=== PATIENT | female | born 1965 | race African-American/Black ===

== ENCOUNTER 2017-08-08 20:20 | Emergency (ER) | payer OTHER ==
[~2017-08-08] VITALS: Ht 167.6 cm; Wt 68.0 kg
[2017-08-08] MEDS ORDERED: MAGNESIUM 2 G PREMIX 50 ML IV STA (20:35)
[2017-08-08] MEDS ORDERED: METHYLPREDNISOLONE SOD SUCC 125 MG/2 ML VIAL IV STA (20:35)
[2017-08-08] MEDS ORDERED: ALBUTEROL (0.083%) 2.5MG/3ML NEB HHN STA (20:35)
[2017-08-08] MEDS ORDERED: IPRATROPIUM BROMIDE (0.02%) 0.5MG/2.5ML NEB HHN STA (20:35)
[2017-08-08 21:18] LABS: HEMATOCRIT. 36.7 % (36.0-48.0); HEMOGLOBIN. 12.6 g/dL (12.0-16.0); MEAN CORPUSCULAR HEMOGLOBIN 31.8 pg (28.0-32.0); MEAN CORPUSCULAR VOLUME 92.5 fL (81.0-99.0); MEAN PLATELET VOLUME 9.3 fl (7.4-10.4); PLATELET 259 x1000/uL (130-400); RED BLOOD CELL COUNT 3.97 mill/uL (4.2-5.4); RED CELL DISTRIBUTION WIDTH 14.2 % (11.6-14.6)
[2017-08-08 21:26] LABS: INR 1.1; PARTIAL THROMBOPLASTIN TIME 25.4 sec (23.4-31.0)
[2017-08-08 21:29] LABS: CARBON DIOXIDE 23 mEq/L (21-32); CHLORIDE 105 mEq/L (98-107)
[2017-08-08 21:32] LABS: TROPONIN I < 0.02 ng/mL (0.00-0.04)
[2017-08-08 21:43] LABS: PLATELET ESTIMATE NORMAL
[2017-08-08] MEDS ORDERED: POTASSIUM CHLORIDE 20MEQ TABLET SR PO ONE (21:45)
[2017-08-08] MEDS ORDERED: KCL 10MEQ/50ML PREMIX 50 ML IV ONE (23:45)
[2017-08-09] MEDS ORDERED: PREDNISONE 20MG TABLET PO ONE (00:45)
[2017-08-09 01:38] VITALS: BP 140/59
== END 2017-08-09 01:39 | disposition home or self-care (01) ==
LOC: ER 20:38
DX: J45.901 Unspecified asthma with (acute) exacerbation (principal); R03.0 Elevated blood-pressure reading, without diagnosis of hypertension
CPT/HCPCS: 36415; 71010; 80048; 83735; 83880; 84132; 84484; 85025; 85610; 85730; 93005; 94640; 96365; 96366; 96367; 96375; 99285; J2930; J3475; J3480; J7040; J7512; J7611

== ENCOUNTER 2021-09-14 07:42 | Emergency (ER) | payer MEDICAID, OTHER ==
[~2021-09-14] VITALS: Ht 165.1 cm; Wt 59.0 kg
[~2021-09-14 07:42] MED LIST: ALBU18HF2 IH; BENZ-16 MT; FLUT1DIS3 INH; P20 MT
[2021-09-14] MEDS ORDERED: SODIUM CHLORIDE 0.9% 1,000 ML IV ONE (08:00)
[2021-09-14] MEDS ORDERED: METOCLOPRAMIDE HCL 10MG/2ML VIAL IV ONE (08:00)
[2021-09-14] MEDS ORDERED: KETOROLAC 30MG/ML VIAL IV STA (08:00)
[2021-09-14 08:18] VITALS: BP 132/93
[2021-09-14] MEDS ORDERED: IBUP-2028 PO (09:55)
[2021-09-14] MEDS ORDERED: METO-293 PO (09:55)
== END 2021-09-14 10:15 | disposition home or self-care (01) ==
LOC: ER 07:42
DX: R51.9 Headache, unspecified (principal); M54.2 Cervicalgia; R03.0 Elevated blood-pressure reading, without diagnosis of hypertension; J45.909 Unspecified asthma, uncomplicated; J44.9 Chronic obstructive pulmonary disease, unspecified; E11.9 Type 2 diabetes mellitus without complications; F14.90 Cocaine use, unspecified, uncomplicated
CPT/HCPCS: 96374; 96375; 99284; J1885; J2765; J7030

== ENCOUNTER 2022-03-07 04:56 | Emergency (ER) | payer MEDICAID, OTHER ==
[~2022-03-07] VITALS: Ht 160 cm; Wt 46.0 kg
[~2022-03-07 04:56] MED LIST changes: +IBUP-2028 PO; +METO-293 PO
[2022-03-07 04:57] VITALS: BP 106/62
[2022-03-07] MEDS ORDERED: ACETAMINOPHEN 500MG TABLET PO ONE (05:15)
[2022-03-07] MEDS ORDERED: IBUP-2029 MT (06:51)
== END 2022-03-07 07:01 | disposition home or self-care (01) ==
LOC: ER 04:56
DX: S70.01XA Contusion of right hip, initial encounter (principal); S80.01XA Contusion of right knee, initial encounter; F14.10 Cocaine abuse, uncomplicated; J45.909 Unspecified asthma, uncomplicated; J44.1 Chronic obstructive pulmonary disease with (acute) exacerbation; Z86.59 Personal history of other mental and behavioral disorders; Y04.0XXA Assault by unarmed brawl or fight, initial encounter; Y93.89 Activity, other specified; Y92.89 Other specified places as the place of occurrence of the external cause; Y99.8 Other external cause status
CPT/HCPCS: 73502; 73562; 99284

== ENCOUNTER 2022-07-18 05:07 | Emergency (ER) | payer OTHER ==
[~2022-07-18] VITALS: Ht 162.6 cm; Wt 69.0 kg
[~2022-07-18 05:07] MED LIST changes: +IBUP-2029 MT
[2022-07-18] MEDS ORDERED: METHYLPREDNISOLONE SOD SUCC 125 MG/2 ML VIAL IV STA (05:24)
[2022-07-18] MEDS ORDERED: ALBUTEROL (0.083%) 2.5MG/3ML NEB HHN STA ×2 (05:24→07:29)
[2022-07-18] MEDS ORDERED: ACETAMINOPHEN 325MG TABLET PO STA (05:24)
[2022-07-18 06:30] LABS: PROTHROMBIN TIME 10.5 sec (9.6-11.0)
[2022-07-18 06:31] LABS: CHLORIDE 110 mEq/L (98-107)
[2022-07-18] MEDS ORDERED: IPRATROPIUM BROMIDE (0.02%) 0.5MG/2.5ML NEB HHN ONE (07:30)
[2022-07-18 08:14] LABS: BASOPHILS % 0.8 % (0.0-2.0); EOSINOPHILS % 4.1 % (0.0-5.0); HEMATOCRIT. 36.2 % (36.0-48.0); HEMOGLOBIN. 12.4 g/dL (12.0-16.0); LYMPHOCYTES % 50.3 % (20.0-50.0); MEAN CORPUSCULAR HEMOGLOBIN 32.3 pg (28.0-32.0); MEAN CORPUSCULAR VOLUME 94.7 fL (81.0-99.0); MEAN PLATELET VOLUME 9.9 fl (7.4-10.4); MONOCYTES % 8.4 % (2.0-8.0); NEUTROPHILS % 36.4 % (40.0-76.0); PLATELET 254 x1000/uL (130-400); RED BLOOD CELL COUNT 3.83 mill/uL (4.2-5.4); RED CELL DISTRIBUTION WIDTH 13.9 % (11.6-14.6)
[2022-07-18] MEDS ORDERED: ALBU6.7H15 INH (08:56)
[2022-07-18] MEDS ORDERED: ALBU2.5V13 NEB (08:56)
[2022-07-18] MEDS ORDERED: P20 MT (08:56)
[2022-07-18 09:34] LABS: CLARITY URINE CLEAR (CLEAR); COLOR URINE YELLOW (YELLOW); KETONES URINE NEGATIVE (NEGATIVE); LEUKOCYTE ESTERASE URINE NEGATIVE (NEGATIVE); NITRITE URINE NEGATIVE (NEGATIVE); OCCULT BLOOD URINE NEGATIVE (NEGATIVE); PROTEIN URINE NEGATIVE (NEGATIVE); SPECIFIC GRAVITY URINE 1.016 (1.005-1.030); UROBILINOGEN URINE 0.2 E.U./dL (0.2-1.0)
[2022-07-18 10:00] VITALS: BP 123/70
== END 2022-07-18 10:02 | disposition home or self-care (01) ==
LOC: ER 05:07
DX: J44.1 Chronic obstructive pulmonary disease with (acute) exacerbation (principal); F14.10 Cocaine abuse, uncomplicated; R06.02 Shortness of breath; F17.290 Nicotine dependence, other tobacco product, uncomplicated; I10 Essential (primary) hypertension; Z13.9 Encounter for screening, unspecified; Z86.59 Personal history of other mental and behavioral disorders; Z20.822 Contact with and (suspected) exposure to COVID-19
CPT/HCPCS: 36415; 71045; 80053; 81003; 83605; 83880; 84484; 85025; 85610; 87040; 87086; 87426; 93005; 94640; 96374; 99285; 99406; C9803; J2930; Z7610

== ENCOUNTER 2023-02-07 16:24 | Emergency (ER) | payer MEDICAID, OTHER ==
[~2023-02-07] VITALS: Ht 167.6 cm; Wt 45.0 kg
[~2023-02-07 16:24] MED LIST changes: +ALBU2.5V13 NEB; +ALBU6.7H15 INH
[2023-02-07 16:50] VITALS: BP 138/80
[2023-02-07 17:28] LABS: BASOPHILS % 0.8 % (0.0-2.0); EOSINOPHILS % 0.6 % (0.0-5.0); HEMOGLOBIN. 12.8 g/dL (12.0-16.0); LYMPHOCYTES % 11.9 % (20.0-50.0); MEAN CORPUSCULAR HEMOGLOBIN 31.2 pg (28.0-32.0); MEAN CORPUSCULAR VOLUME 92.8 fL (81.0-99.0); MEAN PLATELET VOLUME 8.6 fl (7.4-10.4); MONOCYTES % 5.3 % (2.0-8.0); NEUTROPHILS % 81.4 % (40.0-76.0); PLATELET 323 x1000/uL (130-400); RED CELL DISTRIBUTION WIDTH 13.6 % (11.6-14.6)
[2023-02-07 17:33] LABS: CHLORIDE 103 mEq/L (98-107)
[2023-02-07 22:05] LABS: CLARITY URINE CLEAR (CLEAR); COLOR URINE YELLOW (YELLOW); KETONES URINE 1+ (NEGATIVE); LEUKOCYTE ESTERASE URINE NEGATIVE (NEGATIVE); NITRITE URINE NEGATIVE (NEGATIVE); OCCULT BLOOD URINE NEGATIVE (NEGATIVE); PROTEIN URINE NEGATIVE (NEGATIVE); SPECIFIC GRAVITY URINE 1.015 (1.005-1.030); UROBILINOGEN URINE 0.2 E.U./dL (0.2-1.0)
== END 2023-02-08 00:39 | disposition home or self-care (01) ==
LOC: ER 16:24
DX: R10.2 Pelvic and perineal pain (principal); M54.9 Dorsalgia, unspecified
CPT/HCPCS: 36415; 80053; 81003; 85025; 99283